=== PATIENT | male | born 1955 | race Caucasian/White ===

== ENCOUNTER 2018-09-07 09:49 | Emergency (ER) | payer OTHER, SELFPAY ==
[~2018-09-07] VITALS: Ht 193 cm; Wt 122.0 kg
--- NOTE | 2018-09-07 10:14 | NUR ---
PT TO ED AFTER [facility] TODAY WHILE PULLING WEEDS. PT FELL BACKWARD AND LANDED ON RIGHT HAND. SWELLING AND PAIN TO RIGHT WRIST. ICE APPLIED AND RIGHT HAND ELEVATED. CONNECTED TO MONITORS. VSS. AWAITING EDMD ASSESSMENT AND ORDERS.
--- NOTE | 2018-09-07 10:40 | NUR ---
xr complete. vss. pt resting in room with at bedside. awaiting results. call light within reach.
[2018-09-07] MEDS ORDERED: HYDROcodone/APAP 5/325 TABLET ONE (10:56)
[2018-09-07 10:59] VITALS: BP 139/83
--- NOTE | 2018-09-07 10:59 | NUR ---
PT MEDICATED PER JUL. VSS. AWAITING ORTHO CONSULT.
--- NOTE | 2018-09-07 10:59 | NUR ---
dr murphy spoke with dr kirby
[2018-09-07] MEDS ORDERED: HYDROcodone/APAP 5/325 TABLET PO ONE (11:00)
--- NOTE | 2018-09-07 11:19 | NUR ---
edmd to bs to update on poc.
--- NOTE | 2018-09-07 11:20 | NUR ---
pt back from ct at this time. plan to splint, then dc.
--- NOTE | 2018-09-07 11:30 | NUR ---
splint being applied at this time. d/c paperwork completed. ok to d/c after splint is compelte.
== END 2018-09-07 11:50 | disposition home or self-care (01) ==
LOC: ED 11:27
DX: S52.571A Other intraarticular fracture of lower end of right radius, initial encounter for closed fracture (principal); W19.XXXA Unspecified fall, initial encounter; Y93.89 Activity, other specified; Y92.009 Unspecified place in unspecified non-institutional (private) residence as the place of occurrence of the external cause; Y99.8 Other external cause status
CPT/HCPCS: 29125; 99284